=== PATIENT | female | born 1970 ===

== ENCOUNTER 2021-11-19 09:15 | Inpatient (IN) | payer OTHER ==
[~2021-11-19] VITALS: Ht 160 cm; Wt 68.9 kg
[2021-11-19] MEDS ORDERED: PROMETRIUM200 MG PO (10:02)
[2021-11-19] MEDS ORDERED: INTEGRA PLUS C1 EACH PO (10:02)
[2021-11-19] MEDS ORDERED: PROTECT PLUS S1 EACH PO (10:02)
== END 2021-11-27 11:00 | disposition home or self-care (01) | DRG 743 ==
LOC: SURH 11-25 09:15 → O/R 11-25 10:33 → SURH 11-25 14:15 → OB/GYN 11-25 19:18
PROVIDERS: ADMIT Obstetrics & Gynecology; ATTEND Obstetrics & Gynecology
PROC: 0UT70ZZ Resection of Bilateral Fallopian Tubes, Open Approach (ICD-10-PCS; 2021-11-25)
PROC: 0UT10ZZ Resection of Left Ovary, Open Approach (ICD-10-PCS; 2021-11-25)
PROC: 0UT90ZZ Resection of Uterus, Open Approach (ICD-10-PCS; principal; 2021-11-25 14:15)
DX: D25.1 Intramural leiomyoma of uterus (principal); D25.2 Subserosal leiomyoma of uterus; N83.12 Corpus luteum cyst of left ovary; Z20.822 Contact with and (suspected) exposure to COVID-19